=== PATIENT | male | born 1975 | race Caucasian/White ===

== ENCOUNTER 2016-10-27 16:44 | Emergency (ER) | payer MEDICAID | END 2016-10-27 20:47 | disposition home or self-care (01) | LOC: D.ER 16:44 | DX: M77.9 Enthesopathy, unspecified (principal); M19.90 Unspecified osteoarthritis, unspecified site; J45.909 Unspecified asthma, uncomplicated; I10 Essential (primary) hypertension; F17.200 Nicotine dependence, unspecified, uncomplicated ==

== ENCOUNTER 2017-01-28 11:19 | Emergency (ER) | payer MEDICAID | END 2017-01-28 13:03 | disposition home or self-care (01) | LOC: D.ER 11:19 | DX: M54.16 Radiculopathy, lumbar region (principal); I10 Essential (primary) hypertension; Z72.0 Tobacco use ==